=== PATIENT | female | born 1955 ===

== ENCOUNTER 2016-10-06 23:35 | Emergency (ER) | payer SELFPAY ==
[2016-10-06 23:49] VITALS: PULSE 94; RESP 17; TEMP 98.8; O2SAT 96
--- NOTE | 2016-10-07 01:01 | ED PDOC ---
HPI: Hypertension/Hypotension Time Seen by Provider: 10/07/16 00:00 Chief Complaint (Nursing): High Blood Pressure Chief Complaint (Provider): high bp History Per: Patient History/Exam Limitations: no limitations Onset/Duration Of Symptoms: Hrs Current Symptoms Are (Timing): Still Present Associated Symptoms: Headache Additional Complaint(s): 61yo female with PMHx including HTN (on metoprolol, amlodipine, and 1 other agent) presents to the ED with c/o high bp with associated occipital headache since resolved. Patient reports systolic bp was in the 200s at home and is in the 160s on arrival to the ED. Denies chest pain, SOB, vomiting, dizziness, weakness. PCP: Ellis florence Past Medical History Reviewed: Historical Data, Nursing Documentation, Vital Signs Vital Signs: Last Vital Signs Temp 98.8 F 10/06/16 23:45 Pulse 94 H 10/06/16 23:45 Resp 17 10/06/16 23:45 BP 169/99 H 10/06/16 23:45 Pulse Ox 96 10/06/16 23:45 - Medical History PMH: HTN - Surgical History Surgical History: No Surg Hx - Family History Family History: States: No Known Family Hx - Social History Current smoker - smoking cessation education provided: No Alcohol: None Drugs: Denies - Home Medications Home Medications: Ambulatory Orders Medication Instructions Recorded Cephalexin [Keflex] 500 mg PO BID #14 capsule 10/07/16 - Allergies Allergies/Adverse Reactions: Allergies Allergy/AdvReac Type Severity Reaction Status Date / Time No Known Allergies Allergy Verified 10/06/16 23:49 Review of Systems ROS Statement: Except As Marked, All Systems Reviewed And Found Negative Cardiovascular: Positive for: Other (high bp ). Negative for: Chest Pain Respiratory: Negative for: Shortness of Breath Gastrointestinal: Negative for: Vomiting Neurological: Positive for: Headache (since resolved ). Negative for: Weakness , Dizziness Physical Exam - Reviewed Nursing Documentation Reviewed: Yes Vital Signs Reviewed: Yes - Physical Exam Appears: Positive for: Well, No Acute Distress Head Exam: Positive for: ATRAUMATIC, NORMAL INSPECTION, NORMOCEPHALIC Skin: Positive for: Normal Color, Warm, Dry Eye Exam: Positive for: Normal appearance, EOMI, PERRL ENT: Positive for: Normal ENT Inspection Neck: Positive for: Normal, Painless ROM, Supple Cardiovascular/Chest: Positive for: Regular Rate, Rhythm. Negative for: Murmur , Tachycardia Respiratory: Positive for: Normal Breath Sounds. Negative for: Wheezing, Respiratory Distress Gastrointestinal/Abdominal: Positive for: Normal Exam, Soft. Negative for: Tenderness Back: Positive for: Normal Inspection. Negative for: L CVA Tenderness, R CVA Tenderness Extremity: Positive for: Normal ROM. Negative for: Deformity, Swelling Neurologic/Psych: Positive for: Alert, Oriented - ECG ECG: Positive for: Interpreted By Me, Viewed By Me ECG Rhythm: Positive for: Sinus Rhythm (NSR at 77 bpm, LVH, no ST elevation ) O2 Sat by Pulse Oximetry: 96 Pulse Ox Interpretation: Normal (RA) Medical Decision Making Medical Decision Makin: Impression: high bp Plan: EKG Clonidine 0.1mg PO reassess 0150: Patient feels improved and is stable for d/c. ambulating w steady g\ gait.Advised to f/u w/ her PCP in 1-2 days and for detox and return to the ED with any worsening or concerning symptoms. Scribe Attestation: Documented by Claudai Cortez acting as a scribe for Primo Christopher MD. Provider Scribe Attestation: All medical record entries made by the Scribe were at my direction and personally dictated by me. I have reviewed the chart and agree that the record accurately reflects my personal performance of the history, physical exam, medical decision making, and the department course for this patient. I have also personally directed, reviewed, and agree with the discharge instructions and disposition. Disposition - Clinical Impression Clinical Impression: Hypertension - Patient ED Disposition Is Patient to be Admitted: No Counseled Patient/Family Regarding: Studies Performed, Diagnosis, Need For Followup - Disposition Disposition: Routine/Home Disposition Time: 01:52 Condition: IMPROVED Additional Instructions: follow up with your primary doctor in 1-2 days return to the ED with any worsening or concerning symptoms. Prescriptions: Cephalexin [Keflex] 500 mg PO BID #14 capsule Instructions: Hypertension (ED) Print Language: GERMAN - POA Present On Arrival: None
[2016-10-07 01:35] VITALS: BP 166/96
--- NOTE | 2016-10-07 22:37 | CARD ---
APPROVED REPORT EKG Measurement Heart [id number] <Conclusion> Normal sinus rhythm Minimal voltage criteria for LVH, may be normal variant Nonspecific T wave abnormality Abnormal ECG
== END 2016-10-07 02:03 | disposition home or self-care (01) ==
LOC: H.ER 23:35
DX: I10 Essential (primary) hypertension (principal)

== ENCOUNTER 2017-04-08 17:46 | Emergency (ER) | payer SELFPAY ==
[2017-04-08 18:08] VITALS: RESP 18; TEMP 96.8
--- NOTE | 2017-04-08 18:41 | ED PDOC ---
HPI: Hypertension/Hypotension Chief Complaint (Provider): HTN History Per: Patient History/Exam Limitations: language barrier Onset/Duration Of Symptoms: Hrs (This AM) Current Symptoms Are (Timing): Still Present Associated Symptoms: Headache. denies: Chest Pain, Dyspnea, Dizziness, Blurred Vision Quality Of Symptoms: No Rhythm Irregularity Severity: Mild Pain Scale Rating Of: 6 Additional Complaint(s): Mahsa Frazier is a pleasant 62 yo lady with PMHx of HTN, dyslipidemia, osteoporosis presents to the ED after being sent by her PCP. This morning, she measured her BP to be 180/90 after taking her meds: Valsartan, Amlodipine, Metoprolol. She shares of associated numbness of her tongue and ANDERSON. ANDERSON is bitemporal, intermittent 6/10 non radiating, no change in vision. She denies: N/ V/CP/SOB/dizziness,hematuria, weakness. She also shares of R sided rib pain. 3 day in duration; consistent. Pain is pressure like, not sharp. Rated at 9/10. Tender to touch, exacerbated by movement and deep inspiration. She has no attemted to take medication in hopes to alleviate her pain. She denies recent trauma, accidents or falls. She shares of having chicken pox as a child but no history of shingles. PCP: Dr. Arenas at [facility] PMHx: HTN/DLD/osteoporosis/R arm fracture/R shoulder fracture PSHx: R arm fracture FHx: Mother with HTN Social: Denies: smoking/etoh/illicit drugs. NKDA Meds: Valsartan, Amlodipine, Metoprolol, Ca, Alendronate, Atorvastatin <Martin Campos - Last Filed: 04/08/17 19:15> <Glenda Mueller - Last Filed: 04/08/17 22:38> Time Seen by Provider: 04/08/17 18:13 Chief Complaint (Nursing): High Blood Pressure Past Medical History Vital Signs: Last Vital Signs Temp 96.8 F L 04/08/17 18:06 Pulse 70 04/08/17 18:06 Resp 18 04/08/17 18:06 BP 172/93 H 04/08/17 18:06 Pulse Ox 100 04/08/17 18:06 - Medical History PMH: HTN - Surgical History Other surgeries: R arm - Family History Family History: States: Hypertension - Social History Current smoker - smoking cessation education provided: No Alcohol: None Drugs: Denies <BethSalazar Filed: 04/08/17 19:15> Vital Signs: Last Vital Signs Temp 96.8 F L 04/08/17 18:06 Pulse 59 L 04/08/17 22:19 Resp 18 04/08/17 22:19 BP 147/82 04/08/17 22:19 Pulse Ox 98 04/08/17 22:19 <MuellerGlenda F - Last Filed: 04/08/17 22:38> - Home Medications Home Medications: Ambulatory Orders Medication Instructions Recorded Cephalexin [Keflex] 500 mg PO BID #14 capsule 10/07/16 - Allergies Allergies/Adverse Reactions: Allergies Allergy/AdvReac Type Severity Reaction Status Date / Time No Known Allergies Allergy Verified 10/06/16 23:49 Review of Systems ROS Statement: Except As Marked, All Systems Reviewed And Found Negative Constitutional: Negative for: Weakness Eyes: Negative for: Vision Change Cardiovascular: Negative for: Chest Pain Respiratory: Negative for: Shortness of Breath Gastrointestinal: Negative for: Nausea, Vomiting, Abdominal Pain, Diarrhea, Constipation Genitourinary Female: Negative for: Dysuria, Frequency, Hematuria Musculoskeletal: Positive for: Shoulder Pain, Other (R rib pain) Neurological: Negative for: Weakness, Altered Mental Status <Maikel Camposang Filed: 04/08/17 19:15> Physical Exam - Reviewed Vital Signs Reviewed: Yes - Physical Exam Appears: Positive for: Well, No Acute Distress Skin: Positive for: Normal Color, Warm, Dry Eye Exam: Positive for: EOMI. Negative for: Nystagmus ENT: Positive for: Hearing Is (normal), Other (Tongue non deviating, moist oral mucosa, multiple dental caries. No lingual fasciculations) Cardiovascular/Chest: Positive for: Regular Rate, Rhythm, Chest Non Tender, Other (R rib pain at T10-11 at distribution of rib.) Respiratory: Positive for: Normal Breath Sounds. Negative for: Wheezing Gastrointestinal/Abdominal: Positive for: Normal Exam, Bowel Sounds, Soft. Negative for: Tenderness Back: Negative for: L CVA Tenderness, R CVA Tenderness Extremity: Positive for: Normal ROM Neurologic/Psych: Positive for: Alert, manager coding II-XII, Oriented <Martin Campos - Last Filed: 04/08/17 19:15> - Laboratory Results Result Diagrams: 04/08/17 18:49 04/08/17 18:49 - ECG O2 Sat by Pulse Oximetry: 100 <Martin Campos - Last Filed: 04/08/17 19:15> - Laboratory Results Result Diagrams: 04/08/17 18:49 04/08/17 18:49 - ECG Interpretation Of ECG: Sinus john @ 56, LVH. <Glenda Mueller - Last Filed: 04/08/17 22:38> Disposition Discussed With : Glenda Mueller (r/o acs, uti, rib fracture.) - Disposition Disposition: Transfer of Care (Dr. Mueller) Disposition Time: 19:15 <Martin Campos - Last Filed: 04/08/17 19:15> - Disposition Disposition: Routine/Home Disposition Time: 22:37 <Glenda Mueller - Last Filed: 04/08/17 22:38> - Clinical Impression Clinical Impression: Hypertension - Disposition Condition: IMPROVED Instructions: Hypertension (ED) Forms: [facility] (Yoruba) Print Language: MOHAWK
[2017-04-08 18:56] LABS: HEMATOCRIT 40.3 % (34.0-47.0); MEAN CELL VOLUME 86.8 fl (81.0-99.0); MEAN CORPUSCULAR HEMOGLOBIN 29.2 pg (27.0-31.0); MEAN CORPUSCULAR HGB CONC 33.7 g/dL (33.0-37.0); RED CELL DISTRIBUTION WIDTH 14.5 % (11.5-14.5)
[2017-04-08 19:09] LABS: ALB/GLOB RATIO 1.3 (1.0-2.1); ALKALINE PHOSPHATASE 73 U/L (38-126); ALT/SGPT 31 U/L (9-52); AST/SGOT 32 U/L (14-36); BILIRUBIN,TOTAL 0.5 mg/dl (0.2-1.3); BLOOD UREA NITROGEN 14 mg/dl (7-17); CALCIUM 9.3 mg/dL (8.4-10.2); CARBON DIOXIDE 25 mmol/L (22-30); CHLORIDE 107 mmol/L (98-107); GFR AFRICAN-AMERICAN > 60; GLUCOSE,RANDOM 93 mg/dL (65-105); POTASSIUM 3.3 MMOL/L (3.6-5.0); SODIUM 143 mmol/l (132-148); TOTAL PROTEIN 7.5 G/DL (6.3-8.2)
[2017-04-08 19:51] VITALS: O2SAT 98
[2017-04-08 22:20] VITALS: BP 147/82; PULSE 59
[2017-04-08] MEDS ORDERED: Potassium Chloride 20 mEq ER Tab PO STA (22:33)
[2017-04-08] MEDS ORDERED: Potassium Chloride 20 mEq ER Tab PO ONE (22:51)
--- NOTE | 2017-04-09 10:50 | RAD ---
PROCEDURE: Radiographs of the Chest and Right Ribs. HISTORY: HTN, RIB PAIN COMPARISON: None available. TECHNIQUE: Frontal radiograph of the chest and multiple oblique radiographs of the right ribs were obtained. FINDINGS: RIGHT RIBS: No fracture or focal lesion visualized. LUNGS: No infiltrate is identified bilaterally. PLEURA: No pneumothorax or pleural fluid. CARDIOVASCULAR: Cardiac size appears upper limits normal. No pulmonary derangement identified. OTHER FINDINGS: None. IMPRESSION: No right rib fracture or destructive bony lesion appreciated. Upper limits normal cardiac size. Chest radiograph is otherwise unremarkable.
--- NOTE | 2017-04-10 17:49 | CARD ---
APPROVED REPORT EKG Measurement Heart [id number] IN 130P36 [id number] <Conclusion> Sinus bradycardia Possible Left atrial enlargement Left ventricular hypertrophy Abnormal ECG
== END 2017-04-08 23:01 | disposition home or self-care (01) ==
LOC: EDBD 17:46 → H.ER 17:46
DX: I10 Essential (primary) hypertension (principal); M81.0 Age-related osteoporosis without current pathological fracture